=== PATIENT | female | born 2000 ===

== ENCOUNTER 2019-01-11 01:31 | Emergency (ER) | payer SELFPAY ==
[2019-01-11] MEDS ORDERED: NS 0.9% 1000 ML** 1,000 ML IV ONE (01:42)
[2019-01-11] MEDS ORDERED: Metoclopramide IV* 5 MG/ML 2 ML VIAL IV SLOW PU ONE (01:42)
--- NOTE | 2019-01-11 02:37 | ED ---
Substance Abuse/Use - HPI Summary HPI Summary: This patient is a 18 year old F brought in by ambulance to [facility] due to alcohol intoxication this evening. Patient states she had 5-6 drinks this evening and was smoking marijuana. Reports multiple bouts of vomiting. She believes she passed out. - History Of Current Complaint Chief Complaint: EDOverdose Stated Complaint: ETOH PER EMS Hx Obtained From: Patient Onset/Duration of Drug/ETOH Abuse: Hours Ingestion History: Type/Name Of Drug - marijuana and alcohol Overdose Characteristics: Oral, Inhalation Timing Of Abuse: Binge Use Associated Signs And Symptoms: Vomiting, Other: - sycnope - Allergies/Home Medications Allergies/Adverse Reactions: Allergies Allergy/AdvReac Type Severity Reaction Status Date / Time tomato Allergy Abdominal Verified 01/11/19 01:46 Pain Home Medications: Home Medications NK [No Home Medications Reported] 01/11/19 [History Confirmed 01/11/19] PMH/Surg Hx/FS Hx/Imm Hx Opthamlomology History: Denies: Hx Legally Blind EENT History: Denies: Hx Deafness Infectious Disease History: No Infectious Disease History: Denies: Traveled Outside the [place] in Last 30 Days - Family History Known Family History: Negative: Blood Disorder - Social History Occupation: Student Alcohol Use: Occasionally Hx Substance Use: Yes Substance Use Type: Reports: Marijuana Review of Systems Positive: Other - etoh intoxication Positive: Vomiting Positive: Syncope All Other Systems Reviewed And Are Negative: Yes Physical Exam - Summary Physical Exam Summary: VITAL SIGNS: Reviewed. GENERAL: Patient is a well-developed and nourished female who is lying comfortable in the stretcher. Patient is not in any acute respiratory distress. Patient is actively vomiting. HEAD AND FACE: No signs of trauma. No ecchymosis, hematomas or skull depressions. No sinus tenderness. EYES: PERRLA, EOMI x 2, No injected conjunctiva, no nystagmus. EARS: Hearing grossly intact. Ear canals and tympanic membranes are within normal limits. MOUTH: Oropharynx within normal limits. NECK: Supple, trachea is midline, no adenopathy, no JVD, no carotid bruit, no c- spine tenderness, neck with full ROM CHEST: Symmetric, no tenderness at palpation LUNGS: Clear to auscultation bilaterally. No wheezing or crackles. CVS: Regular rate and rhythm, S1 and S2 present, no murmurs or gallops appreciated. ABDOMEN: Soft, non-tender. No signs of distention. No rebound no guarding, and no masses palpated. Bowel sounds are normal. EXTREMITIES: FROM in all major joints, no edema, no cyanosis or clubbing. NEURO: Alert and oriented x 3. No acute neurological deficits. Speech is normal and follows commands. SKIN: Dry and warm Triage Information Reviewed: Yes Vital Signs On Initial Exam: Initial Vitals Temp Pulse Resp BP Pulse Ox 98.0 F 125 22 101/64 100 01/11/19 01:40 01/11/19 01:40 01/11/19 01:40 01/11/19 01:40 01/11/19 01:40 Vital Signs Reviewed: Yes Diagnostics - Vital Signs Vital Signs Temp Pulse Resp BP Pulse Ox 01/11/19 02:00 104 91 01/11/19 01:57 113 100 01/11/19 01:43 117 101/64 98 01/11/19 01:40 98.0 F 125 22 101/64 100 - Laboratory Lab Statement: Any lab studies that have been ordered have been reviewed, and results considered in the medical decision making process. Course/Dx - Course Course Of Treatment: 18 year old F brought in by ambulance to [facility] due to alcohol intoxication this evening. Patient states she had 5-6 drinks this evening and was smoking marijuana. Patient is given 1000mls of IVF and 10mg of Reglan. After a few hours patients symptoms improved and a sober friend is available to drive her home. Patient will be discharged home. - Diagnoses Provider Diagnoses: Alcohol intoxication Discharge - Sign-Out/Discharge Documenting (check all that apply): Patient Departure - discharge Patient Received Moderate/Deep Sedation with Procedure: No - Discharge Plan Condition: Stable Disposition: HOME Patient Education Materials: Alcohol Intoxication (ED) [facility] - If Needed Additional Instructions: RETURN TO THE EMERGENCY DEPARTMENT FOR CHANGING OR WORSENING SYMPTOMS. - Attestation Statements Document Initiated by Scribe: Yes Documenting Scribe: Fiordaliza Gomez Provider For Whom Scribe is Documenting (Include Credential): Nany Galindo MD Scribe Attestation: Fiordaliza Justice, scribed for Nany Galindo MD on 01/11/19 at 0607. Status of Scribe Document: Ready
== END 2019-01-11 06:13 | disposition home or self-care (01) ==
LOC: ED 01:31
DX: F10.129 Alcohol abuse with intoxication, unspecified (principal); R11.10 Vomiting, unspecified; R55 Syncope and collapse; Z91.018 Allergy to other foods
CPT/HCPCS: 96361; 96374; 99283; J2765